=== PATIENT | male | born 1965 | race Caucasian/White ===

== ENCOUNTER 2021-04-06 23:05 | Emergency (ER) | payer OTHER, SELFPAY ==
--- NOTE | ~2021-04-06 | CT_ITS ---
EXAMINATION: CT abdomen pelvis wo con DATE: 04/07/2021 02:29 INDICATION: Left-sided flank pain. Hematuria. TECHNIQUE: Computed tomography (CT) of the abdomen and pelvis was performed without intravenous contr ast. Automated exposure control and iterative reconstruction technique were employed. Exam dose: 416 .40 mGy-cm total exam DLP. COMPARISON: None. FINDINGS: There is mild atelectasis in the dependent lower lobes, right greater than left. Normal hea rt size. No pericardial or pleural effusion. The liver, gallbladder, bile ducts, pancreas, pancreatic duct, spleen and adrenal glands are unremark able. No right or left renal mass lesion is evident. There is one pinpoint nonobstructing right renal calculus and there are 2 small lower pole left renal nonobstructing calculi. There is an approximately 2.1 x 3.6 mm distal left ureteral obstructing calculus with mild to moderat e left hydroureteronephrosis as well as left perinephric stranding. No right ureteral calculus or rig ht-sided hydroureteronephrosis. Prostate enlargement and calcification. The urinary bladder is evacuated. Minimally dilated focal small bowel loop with air-fluid levels overlying the left lower quadrant, lik del mild adynamic ileus. Normal appendix. No bowel obstruction, bowel wall thickening, pneumatosis or intraperitoneal free air . There is a prominent amount of fecal material within the colon. Included skeletal structures are unremarkable. IMPRESSION: 2.1 x 3.6 mm distal left ureteral obstructing calculus with mild to moderate left hydron ephrosis, perinephric stranding Bilateral nonobstructive mild nephrolithiasis Prostate enlargement and calcification Reviewed, dictated and finalized at [facility]. Reviewed, dictated and finalized at [facility]. IMPRESSION: 2.1 x 3.6 mm distal left ureteral obstructing calculus with mild t o moderate left hydronephrosis, perinephric stranding Bilateral nonobstructive mild nephrolithiasis Prostate enlargement and calcification
[2021-04-06 23:10] VITALS: BP 137/76; PULSE 69; RESP 14; TEMP 36.7; O2SAT 99
[2021-04-06 23:52] LABS: Basophils Absolute Auto 0.1 K/mm3 (0.0-0.1); Basophils Percent Auto 0.5 % (0.2-1.2); Eosinophils Absolute Auto 0.1 K/mm3 (0-0.3); Eosinophils Percent Auto 1.3 % (0-4.4); Hematocrit 48.2 % (42.0-52.0); Hemoglobin 16.5 g/dL (14.0-18.0); Immature Granulocyte Absolute 0.03 K/mm3 (0.00-0.031); Immature Granulocyte Percent A 0.3 % (0-0.5); Lymphocytes Absolute Auto 1.06 K/mm3 (0.9-3.2); Lymphocytes Percent Auto 9.8 % (18.3-44.2); Mean Corpuscular HGB Conc 34.2 g/dl (32-36); Mean Corpuscular Hemoglobin 32.5 pg (26-34); Mean Corpuscular Volume 94.9 fl (80-100); Mean Platelet Volume 9.4 fl (7.4-10.4); Monocytes Absolute Auto 0.8 K/mm3 (0.1-0.6); Neutrophils Absolute Auto 8.8 K/mm3 (1.3-6.7); Neutrophils Percent Auto 81.1 % (45.5-73.1); Platelet Count Result 256 k/mm3 (150-375); Red Blood Count 5.08 M/mm3 (4.6-6.20); Red Cell Distribution Width 12.1 % (11.5-14.5); White Blood Count 10.8 K/mm3 (4.5-10.0)
[2021-04-06 23:54] LABS: Anion Gap 10 mmol/L (8-16); Blood Urea Nitrogen 14 mg/dL (9-20); Calcium 9.1 mg/dL (8.4-10.2); Carbon Dioxide 25 mmol/L (22-30); Chloride 101 mmol/L (98-107); Estimated CRCL calculation 82 ml/min; Estimated Glomerular Filt Rate > 60; Glucose 309 mg/dL (75-110); Potassium 3.9 mmol/L (3.4-5.0); Sodium 136 mmol/L (137-145)
[2021-04-07 00:06] LABS: Add Urine Microscopic? YES; Appearance Urine Cloudy (Clear); Bilirubin Urine Negative (Negative); Blood Urine 3+ (Negative); Calcium Oxalate Crystals Urine Present /hpf; Color Urine Yellow (Yellow); Glucose Urine UA 3+ mg/dL (Negative); Ketones Urine 1+ mg/dL (Negative); Leukocyte Esterase Ur Negative LEU/UL (Negative); Mucus Urine Rare /lpf; Nitrate Urine Negative (Negative); Protein Urine 1+ mg/dL (Negative); RBC Urine >75 /hpf (0-2); Specific Grav Ur 1.039 (1.001-1.035); Squamous Epithelial Cell Urine Few /hpf (Few); WBC Urine 0-3 /hpf
[2021-04-07 01:16] VITALS: BP 118/76; PULSE 85; RESP 15; TEMP 36.6; O2SAT 95
[2021-04-07] MEDS: HYDROcodone/acetaminophen (*CRX) 5-325 MG TABLET 1 TAB PO (03:09)
[2021-04-07] MEDS: KETOROLAC (*BKC) 60 MG/2 ML VIAL IM (03:10)
--- NOTE | 2021-04-07 03:43 | ED.GENADULT ---
HPI - General Adult General Chief complaint: Back Pain/Injury Stated complaint: L flank pain Time Seen by Provider: 04/07/21 01:52 History of Present Illness HPI narrative: Patient 55-year-old gentleman who presents emerged from with chief complaint of left flank pain. Patient states that started having discomfort in his left flank area today whenever he left [place] states that sharp reports is nonradiating reports he noticed that his urine was a little bit different colored today as well patient denies nausea denies vomiting denies fever or chills. Related Data Allergies Allergy/AdvReac Type Severity Reaction Status Date / Time No Known Allergies Allergy Verified 04/07/21 01:21 Review of Systems Review of Systems: Narrative: A 10 system review of systems was completed on the patient and is negative except for what is stated in the HPI. Nursing and ancillary documentation was reviewed. [facility] Social History Social History Gender identity (if verbalized by the patient): Male Comments Patient has past medical history significant for kidney stones Exam Narrative: Exam Narrative: GENERAL: Well-appearing, well-nourished, and in no acute distress. HEAD: Normocephalic, atraumatic. EYES: PERRLA and EOMI. ENT: Nares clear, no rhinorrhea or epistaxis. Mucous membranes moist. NECK: Supple. CHEST: Clear to auscultation. No respiratory distress. HEART: Regular rate and rhythm. No murmur heard. Normal peripheral pulses. ABDOMEN: Soft, nontender, nondistended, normal active bowel sounds. EXTREMITIES: Normal range of motion. No edema. SKIN: Warm, dry, no rash. NEURO: No focal deficits. Alert and oriented x3. PSYCH: Normal mood and affect. Course Vital Signs Vital signs: Vital Signs Temperature 36.7 C 04/06/21 23:10 Pulse Rate 69 04/06/21 23:10 Respiratory Rate 14 04/06/21 23:10 Blood Pressure 137/76 04/06/21 23:10 Pulse Oximetry 99 04/06/21 23:10 Temperature 36.6 C 04/07/21 01:16 Pulse Rate 85 04/07/21 01:16 Respiratory Rate 15 04/07/21 01:16 Blood Pressure 118/76 04/07/21 01:16 Pulse Oximetry 95 04/07/21 01:16 Medical Decision Making Vital Signs Vital Signs: Vital Signs Temperature 36.7 C 04/06/21 23:10 Pulse Rate 69 04/06/21 23:10 Respiratory Rate 14 04/06/21 23:10 Blood Pressure 137/76 04/06/21 23:10 Pulse Oximetry 99 04/06/21 23:10 Temperature 36.6 C 04/07/21 01:16 Pulse Rate 85 04/07/21 01:16 Respiratory Rate 15 04/07/21 01:16 Blood Pressure 118/76 04/07/21 01:16 Pulse Oximetry 95 04/07/21 01:16 Lab Data Result diagrams: 04/06/21 23:32 04/06/21 23:32 Labs: Lab Results 04/06/21 04/06/21 04/06/21 Range/Units 23:16 23:32 23:32 WBC 10.8 H (4.5-10.0) K/mm3 RBC 5.08 (4.6-6.20) M/mm3 Hgb 16.5 (14.0-18.0) g/dL Hct 48.2 (42.0-52.0) % MCV 94.9 (80-100) fl MCH 32.5 (26-34) pg MCHC 34.2 (32-36) g/dl RDW 12.1 (11.5-14.5) % Plt Count 256 (150-375) k/mm3 MPV 9.4 (7.4-10.4) fl Immature Gran % (Auto) 0.3 (0-0.5) % Neut % (Auto) 81.1 H (45.5-73.1) % Lymph % (Auto) 9.8 L (18.3-44.2) % Patrick % (Auto) 7.0 (2.6-8.5) % Eos % (Auto) 1.3 (0-4.4) % Baso % (Auto) 0.5 (0.2-1.2) % Lymph # (Auto) 1.06 (0.9-3.2) K/mm3 Patrick # (Auto) 0.8 H (0.1-0.6) K/mm3 Eos # (Auto) 0.1 (0-0.3) K/mm3 Baso # (Auto) 0.1 (0.0-0.1) K/mm3 Abs Immat Gran (auto) 0.03 (0.00-0.031) K/mm3 Absolute Neuts (auto) 8.8 H (1.3-6.7) K/mm3 Absolute Nucleated RBC 0.0 (0.0-0.012) K/mm3 Nucleated RBC % 0.0 (0.0-0.2) % Sodium 136 L (137-145) mmol/L Potassium 3.9 (3.4-5.0) mmol/L Chloride 101 (98-107) mmol/L Carbon Dioxide 25 (22-30) mmol/L Anion Gap 10 (8-16) mmol/L BUN 14 (9-20) mg/dL Creatinine 1.00 (0.7-1.3) mg/dL Estim Creat Clear Calc
[2021-04-07 03:54] VITALS: BP 124/78; PULSE 74; RESP 15; O2SAT 97
== END 2021-04-07 04:00 | disposition home or self-care (01) ==
PROVIDERS: Emergency Medicine; Emergency Provider Emergency Medicine
DX: N20.0 Calculus of kidney (principal)
CPT/HCPCS: 36415; 74176; 80048; 81001; 85025; 96372; 99284; A9270; J1885